=== PATIENT | female | born 1995 | race Caucasian/White ===

== ENCOUNTER 2023-06-26 17:59 | Inpatient (IN) ==
[2023-06-26] MEDS ORDERED: Prochlorperazine 5 mg/ml 2 ml VIAL (10 mg) IV PRN (18:53)
[2023-06-26] MEDS ORDERED: Lidocaine 1% VIAL 10 MG/ML 30 ML VIAL INJ PRN (18:53)
[2023-06-26] MEDS: Dinoprostone 10 MG VAG.SUPP VAGINAL ONE (19:39)
[2023-06-26] MEDS: Insulin NPH 100 units/ml SUBCUT SCH (22:03)
[2023-06-26 23:10] LABS: Urine Benzodiazepine Screen None Detected (None Detect); Urine Cannabinoids Screen None Detected (None Detect); Urine Opiates Screen None Detected (None Detect)
[2023-06-27] MEDS: miSOPROStol 100 mcg TAB VAGINAL ONE ×2 (12:31→16:49)
[2023-06-27 20:46] LABS: ABS Basophils 0.1 10^3/uL (0.0-0.1); ABS Lymphocytes 1.5 10^3/uL (1.0-4.8); ABS Monocytes 0.8 10^3/uL (0.0-0.9); ABS Neutrophils 8.3 10^3/uL (1.5-7.6); ABS Nucleated RBC 0.01 10^3/ul; Eosinophil % 0.3 %; Hematocrit 39.7 % (35-45); Hemoglobin 13.5 g/dL (11.5-14.3); Lymphocyte % 14.1 %; Mean Corpuscular Hemoglobin 28.4 pg (27-33); Mean Corpuscular Hgb Conc 34.1 g/dL (31-36); Mean Corpuscular Volume 83.3 fL (80-97); Mean Platelet Volume 10.1 fL (7.5-11.2); Nucleated Red Blood Cells % 0.1 %/100WBC (0.0-0.8); Platelet Count 181 10^3/uL (150-450); Red Blood Count 4.77 10^6/uL (3.63-4.92); Red Cell Distribution Width 15.2 % (12-17); White Blood Count 10.7 10^3/uL (3.8-11.8)
[2023-06-27] MEDS ORDERED: Phenylephrine 40 mcg/mL 10mL (400mcg) SYRINGE IV PUSH PRN ×2 (22:59)
[2023-06-27] MEDS ORDERED: Sodium Citrate/Citric Acid LIQ 15 ML UDC PO PRN (22:59)
[2023-06-28] MEDS ORDERED: Chloroprocaine 3% 20 ml VIAL ONE (02:13)
[2023-06-28] MEDS ORDERED: fentaNYL 100 mcg/2 ml 50 MCG/ML VIAL ONE (02:13)
[2023-06-28] MEDS ORDERED: Phenylephrine IV 10 MG/ML 1 ml VIAL ONE (02:13)
[2023-06-28] MEDS ORDERED: Ondansetron 4 mg VIAL 2 MG/ML 2 ml VIAL ONE (02:30)
[2023-06-28] MEDS ORDERED: Oxytocin 10 UNITS/ML 1 ML VIAL ONE (02:30)
[2023-06-28] MEDS ORDERED: Dexamethasone IV 4 MG/ML VIAL 1 ml VIAL ONE (02:30)
[2023-06-28] MEDS ORDERED: Lidocaine 2% w/ EPI 1:200,000 MPF 20 ML SDV VIAL ONE (02:48)
[2023-06-28] MEDS ORDERED: Morphine PF AMP (0.5MG/ML) 5 MG/10 ML AMP ONE (03:07)
[2023-06-28] MEDS ORDERED: Acetaminophen IV 1 GM/100ML 1,000 MG/100 ML BAG IV ONE (03:15)
[2023-06-28] MEDS ORDERED: Naloxone 0.4 mg VIAL 0.4 mg/ml 1 ml VIAL IV PUSH PRN (03:17)
[2023-06-28] MEDS ORDERED: Metoclopramide 5 MG/ML VIAL (10 mg) IV PRN (03:17)
[2023-06-28] MEDS ORDERED: Acetaminophen IV 1 GM/100ML 1,000 MG/100 ML BAG IV PRN (03:17)
[2023-06-28] MEDS ORDERED: Glycerin ADULT 2.4 gm SUPP PR PRN (04:08)
[2023-06-28] MEDS ORDERED: Lactated Ringers 1000 ml BAG 1,000 ML IV SCH (05:00)
[2023-06-28] MEDS: miSOPROStol 100 mcg TAB VAGINAL ONE (05:02)
[2023-06-28] MEDS: Lactated Ringers 1000 ml BAG 1,000 ML IV SCH ×2 (05:02→05:27)
[2023-06-28] MEDS: Buffered Lidocaine 1% SYRIN 1 ml INTRADERM ONE (05:02)
[2023-06-28] MEDS: Lactated Ringers 1000 ml BAG 1,000 ML IV ONE ×2 (05:02→05:27)
[2023-06-28] MEDS: OBEPIDURAL (200 ML) 200 ML EPIDURAL ONE (05:03)
[2023-06-28] MEDS: Lidocaine 1.5% EPI 1:200,000 30 ML SDV ONE (05:03)
[2023-06-28] MEDS: OBEPIDURAL (200 ML) 200 ML EPIDURAL SCH (05:27)
[2023-06-28] MEDS: ceFOXitin 2 GM IVPREMIX 2 GM/50 ML BAG IVPB ONE (05:28)
[2023-06-28] MEDS: Oxytocin in LR 20,000 MILLI.UNIT/1,000 ML BAG IV SCH (05:29)
[2023-06-28] MEDS: Ondansetron 4 mg VIAL 2 MG/ML 2 ml VIAL IV PRN (11:33)
[2023-06-28] MEDS: Witch Hazel PAD JAR TOPICAL PRN (14:59)
[2023-06-28] MEDS: Dibucaine 1% OINT 28.35 GM TUBE PR PRN (14:59)
[2023-06-29 07:14] LABS: ABS Lymphocytes 2.1 10^3/uL (1.0-4.8); ABS Monocytes 0.9 10^3/uL (0.0-0.9); ABS Neutrophils 11.3 10^3/uL (1.5-7.6); Eosinophil % 0.3 %; Hematocrit 31.7 % (35-45); Hemoglobin 10.5 g/dL (11.5-14.3); Lymphocyte % 14.6 %; Mean Corpuscular Hemoglobin 28.1 pg (27-33); Mean Corpuscular Hgb Conc 33.2 g/dL (31-36); Mean Corpuscular Volume 84.7 fL (80-97); Mean Platelet Volume 10.2 fL (7.5-11.2); Platelet Count 134 10^3/uL (150-450); Red Blood Count 3.74 10^6/uL (3.63-4.92); Red Cell Distribution Width 15.5 % (12-17); White Blood Count 14.4 10^3/uL (3.8-11.8)
[2023-06-30] MEDS: RHO D Immune Globulin (HUMAN) 300 MCG = 1,500 I.U. INJ IM PRN (17:21)
[2023-07-01 08:17] VITALS: BP 106/72
== END 2023-07-01 11:35 | disposition home or self-care (01) | DRG 540 ==
LOC: MCHOBOUT 17:59 → MCHOB 18:55
PROVIDERS: ADMIT Obstetrics & Gynecology; ATTEND Obstetrics & Gynecology